=== PATIENT | male | born 1950 | race Caucasian/White ===

== ENCOUNTER 2021-08-25 02:25 | Emergency (ER) | payer MEDICARE, OTHER ==
--- NOTE | 2021-08-25 02:48 | EDM.PDOC ---
ED HPI GENERAL MEDICAL PROBLEM - General Chief Complaint: General Stated Complaint: Sudden change in LOC at home, EMS brought to ER, pt minmally responsive, last known normal was 0130 Time Seen by Provider: 08/25/21 02:25 Source of Information: Reports: EMS, Family History Limitations: Reports: Altered Mental Status - History of Present Illness INITIAL COMMENTS - FREE TEXT/NARRATIVE: LAST KNOWN NORMAL WAS 013 Onset: Sudden Onset Date: 08/25/21 Onset Time: 01:30 Duration: Constant Location: Reports: Generalized Treatments MEDICAL ECONOMICS CONSULTANT: Reports: Other (see below) (ondansetron on ambulance) - Related Data Allergies Allergy/AdvReac Type Severity Reaction Status Date / Time procaine [From Novocain] Allergy Tremors Verified 04/23/17 10:21 Home Meds: Home Meds Chlorthalidone 12.5 mg PO DAILY 04/13/16 [History] Escitalopram Oxalate 10 mg PO DAILY 04/13/16 [History] NIFEdipine [Nifedipine ER] 90 mg PO DAILY 04/13/16 [History] carvediloL [Coreg] 6.25 mg PO BID 04/13/16 [History] metFORMIN HCl [Metformin HCl] 1,000 mg PO QAM 04/13/16 [History] traZODone 50 mg PO BEDTIME 04/13/16 [History] Clopidogrel [Plavix] 75 mg PO DAILY 05/05/16 [History] Aspirin [Ecotrin EC] 81 mg PO DAILY 04/23/17 [History] Cholecalciferol (Vitamin D3) [Vitamin D3] 2,000 units PO DAILY 04/23/17 [History] Losartan Potassium 100 mg PO DAILY 04/23/17 [History] Melatonin 5 mg PO BEDTIME 04/23/17 [History] Multivitamin [Daily Multiple Vitamin] 1 each PO DAILY 04/23/17 [History] Nitroglycerin 0.4 mg PO ASDIRECTED PRN 04/23/17 [History] atorvaSTATin Calcium [Atorvastatin Calcium] 80 mg PO DAILY 04/23/17 [History] metFORMIN HCl [Metformin HCl] 500 mg PO QPM 04/23/17 [History] Past Medical History HEENT History: Reports: Cataract Cardiovascular History: Reports: Bypass, Hypertension, [place] Other Cardiovascular History: triple bypass 2006 Gastrointestinal History: Reports: GERD Other Gastrointestinal History: appetite good since this [place]; said he has been trying to watch what he eats, has lost about 15 lbs recently Other Endocrine/Metabolic History: said he started on Metformin just before his [place]; he does not check his blood sugar on a regular basis; said he had a Hg AIC recently through Dr. Almodovar's office. - Past Surgical History Dermatological Surgical History: Reports: Skin Biopsy Social & Family History - Family History Family Medical History: No Pertinent Family History ED ROS GENERAL - Review of Systems Review Of Systems: Unable To Obtain (Pt nonverbal at present.) Reason Not Obtained: unresponsive ED EXAM, GENERAL - Physical Exam Exam: See Below Exam Limited By: Altered Mental Status General Appearance: Obtunded Eye Exam: Bilateral Eye: Normal Inspection, Other (Keeps eyes closed) Ears: Normal External Exam Nose: Normal Inspection, Normal Mucosa, No Blood Throat/Mouth: Normal Inspection, Normal Lips, Normal Gums, Normal Oropharynx, No Airway Compromise Head: Atraumatic, Normocephalic Neck: Normal Inspection, Supple, Non-Tender, Full Range of Motion Respiratory/Chest: Lungs Clear, No Accessory Muscle Use Cardiovascular: Normal Peripheral Pulses, Regular Rate, Rhythm, Tachycardia GI/Abdominal: Normal Bowel Sounds, Soft, No Distention Back Exam: Normal Inspection Extremities: Normal Inspection, Normal Capillary Refill Neurological: Other (will slightly move fingers and toes on command) Skin Exam: Warm, Dry, Intact, Normal Color #1 Interpretation Rhythm: NSR QRS: RBBB Course - Vital Signs Last Recorded V/S: Last Vital Signs Temp 99.6 F 08/25/21 05:09 Pulse 82 08/25/21 05:09 Resp 27 H 08/25/21 05:09 BP 171/100 H 08/25/21 05:09 Pulse Ox 99 08/25/21 04:46 - Orders/Labs/Meds Orders: Active Orders 24 hr Category Date Time Status Head wo Cont [CT] Stat Exams 08/25/21 02:50 Taken ABO/RH TYPE [BBK] Stat Lab 08/25/21 04:26 Results FRESH FROZEN PLASMA [BBK] Stat Lab 08/25/21 04:26 Results FRESH FROZEN PLASMA [BBK] Stat Lab 08/25/21 05:23 Received Diltiazem [Cardizem] 100 mg Med 08/25/21 03:30 Active Sodium Chloride 0.9% [Normal Saline AdvBag] 100 ml IV TITRATE Hum Prothrombin Cplx(Pcc)4Fact [Kcentra 1,000 Unit Vial Med 08/25/21 04:50 Once ] 1,000 unit IV ONETIME ONE Hum Prothrombin Cplx(Pcc)4Fact [Kcentra 1,000 Unit Vial Med 08/25/21 03:47 Once ] 2,500 unit IV ONETIME ONE Labetalol [Normodyne] 100 mg Med 08/25/21 04:30 Active Sodium Chloride 0.9% [Normal Saline AdvBag] 100 ml IV TITRATE Sodium Chloride 0.9% [Normal Saline] 250 ml Med 08/25/21 05:15 Active IV ASDIRECTED Medication Orders Factor IX Complex Human (Factor Ix Complex Human 1,000 Unit Vial) 2,500 unit IV ONETIME ONE Stop: 08/25/21 03:48 Factor IX Complex Human (Factor Ix Complex Human 1,000 Unit Vial) 1,000 unit IV ONETIME ONE Stop: 08/25/21 04:51 Diltiazem HCl 100 mg/ Sodium (Chloride) 100 mls @ 5 mls/hr IV TITRATE BERYL; Protocol Last Titration: 08/25/21 04:12 Dose: 10 mg/hr, 10 mls/hr Documented by: Admin: 08/25/21 03:27 Dose: 5 mg/hr, 5 mls/hr Documented by: HUMBERTO Labetalol HCl 100 mg/ Sodium (Chloride) 120 mls @ 72 mls/hr IV TITRATE BERYL; Protocol Last Titration: 08/25/21 04:58 Dose: 2 mg/min, 144 mls/hr Documented by: Admin: 08/25/21 04:40 Dose: 1 mg/min, 72 mls/hr Documented by: HUMBERTO Sodium Chloride (Normal Saline) 250 mls @ 50 mls/hr IV ASDIRECTED BERYL Labs: Laboratory Tests 08/25/21 08/25/21 08/25/21 Range/Units 02:50 02:54 02:54 WBC 18.8 H (4.0-11.0) 10^3/uL RBC 4.50 (4.50-6.00) x10^6/uL Hgb 14.2 (14.0-18.0) g/dL Hct 44.5 (42.0-52.0) % MCV 98.9 H (83.0-97.0) fL MCH 31.6 (27.0-32.0) pg MCHC 31.9 L (32.0-36.0) g/dL RDW Coeff of Apolinar 13.7 (11.0-15.0) % Plt Count 165 (150-400) 10^3/uL Immature Gran % (Auto) 1.7 (0.0-4.9) % Neut % (Auto) 84.2 H (41-71) % Lymph % (Auto) 5.1 L (24-44) % [place] % (Auto) 8.7 (0-10) % Eos % (Auto) 0.2 (0-6) % Baso % (Auto) 0.1 (0-1) % Neut # (Auto) 15.80 H (1.80-8.00) x10^3/uL Lymph # (Auto) 0.95 (0.60-5.00) 10^3/uL [place] # (Auto) 1.64 H (0.00-1.50) 10^3/uL Eos # (Auto) 0.03 (0.00-1.50) 10^3/uL Baso # (Auto) 0.02 (0.00-0.50) 10^3/uL Immature Gran # (Auto) 0.31 (0.00-0.49) 10^3/uL PT (9.7-12.3) SEC INR (0.92-1.18) APTT (23.2-32.3) SEC Sodium 141 (136-145) mEq/L Potassium 4.1 (3.5-5.0) mEq/L Chloride 103 (98-106) mEq/L Carbon Dioxide 27 (21-32) mmol/L BUN 22 H (7-18) mg/dL Creatinine 1.4 H (0.7-1.3) mg/dL Est Cr Clr Drug Dosing 42.71 mL/min Estimated GFR (MDRD) 50 L (>=60) mL/min Glucose 313 H* D (75-99) mg/dL Calcium 8.8 (8.4-10.1) mg/dL Magnesium 1.7 L (1.8-2.4) mg/dL Total Bilirubin 0.6 (0.0-1.0) mg/dL AST 21 (15-37) U/L ALT 54 (12-78) U/L Alkaline Phosphatase 68 (46-116) U/L Troponin I High Sens 110.4 H* (<=76) pg/mL Total Protein 6.1 L (6.4-8.2) g/dL Albumin 3.1 L (3.4-5.0) g/dL SARS CoV-2 RNA Rapid ELLIOT Negative (NEGATIVE) Blood Type 08/25/21 08/25/21 Range/Units 02:54 04:26 WBC (4.0-11.0) 10^3/uL RBC (4.50-6.00) x10^6/uL Hgb (14.0-18.0) g/dL Hct (42.0-52.0) % MCV (83.0-97.0) fL MCH (27.0-32.0) pg MCHC (32.0-36.0) g/dL RDW Coeff of Apolinar (11.0-15.0) % Plt Count (150-400) 10^3/uL Immature Gran % (Auto) (0.0-4.9) % Neut % (Auto) (41-71) % Lymph % (Auto) (24-44) % [place] % (Auto) (0-10) % Eos % (Auto) (0-6) % Baso % (Auto) (0-1) % Neut # (Auto) (1.80-8.00) x10^3/uL Lymph # (Auto) (0.60-5.00) 10^3/uL [place] # (Auto) (0.00-1.50) 10^3/uL Eos # (Auto) (0.00-1.50) 10^3/uL Baso # (Auto) (0.00-0.50) 10^3/uL Immature Gran # (Auto) (0.00-0.49) 10^3/uL PT 10.9 (9.7-12.3) SEC INR 1.00 (0.92-1.18) APTT 21.7 L (23.2-32.3) SEC Sodium (136-145) mEq/L Potassium (3.5-5.0) mEq/L Chloride (98-106) mEq/L Carbon Dioxide (21-32) mmol/L BUN (7-18) mg/dL Creatinine (0.7-1.3) mg/dL Est Cr Clr Drug Dosing mL/min Estimated GFR (MDRD) (>=60) mL/min Glucose (75-99) mg/dL Calcium (8.4-10.1) mg/dL Magnesium (1.8-2.4) mg/dL Total Bilirubin (0.0-1.0) mg/dL AST (15-37) U/L ALT (12-78) U/L Alkaline Phosphatase (46-116) U/L Troponin I High Sens (<=76) pg/mL Total Protein (6.4-8.2) g/dL Albumin (3.4-5.0) g/dL SARS CoV-2 RNA Rapid ELLIOT (NEGATIVE) Blood Type O POSITIVE Meds: Medications Generic Name Dose Route Start Last Admin Trade Name Freq PRN Reason Stop Dose Admin Factor IX Complex Human 2,500 unit 08/25/21 03:47 Factor Ix Complex Human 1,000 Unit Vial IV 08/25/21 03:48 ONETIME ONE Factor IX Complex Human 1,000 unit 08/25/21 04:50 Factor Ix Complex Human 1,000 Unit Vial IV 08/25/21 04:51 ONETIME ONE Diltiazem HCl 100 mg/ Sodium 100 mls @ 5 mls/hr 08/25/21 03:30 08/25/21 04:12 Chloride IV 10 mg/hr TITRATE BERYL 10 mls/hr Titration Protocol 5 MG/HR Labetalol HCl 100 mg/ Sodium 120 mls @ 72 mls/hr 08/25/21 04:30 08/25/21 04:58 Chloride IV 2 mg/min TITRATE BERYL 144 mls/hr Titration Protocol 1 MG/MIN Sodium Chloride 250 mls @ 50 mls/hr 08/25/21 05:15 Normal Saline IV ASDIRECTED BERYL Discontinued Medications Generic Name Dose Route Start Last Admin Trade Name Freq PRN Reason Stop Dose Admin Diltiazem HCl 5 mg 08/25/21 03:19 08/25/21 03:23 Diltiazem 25 Mg/5 Ml Sdv IVPUSH 08/25/21 03:20 5 mg ONETIME ONE Administration Diltiazem HCl Confirm 08/25/21 02:59 08/25/21 03:27 Diltiazem 100 Mg Advvial Administered 08/25/21 03:00 Not Given Dose 100 mg .ROUTE .STK-MED ONE Factor IX (Pha) Confirm 08/25/21 03:40 08/25/21 04:52 Kcentra Administered 08/25/21 03:41 8.4 mls/hr Dose Administration 500 mls @ as directed .ROUTE .STK-MED ONE Labetalol HCl 10 mg 08/25/21 03:54 08/25/21 04:05 Labetalol 100 Mg/20 Ml Mdv IVPUSH 08/25/21 03:55 10 mg ONETIME ONE Administration Protocol Labetalol HCl 10 mg 08/25/21 04:24 08/25/21 04:25 Labetalol 100 Mg/20 Ml Mdv IVPUSH 08/25/21 04:25 10 mg ONETIME ONE Administration Protocol - Radiology Interpretation Free Text/Narrative:: CT head show acute hemorrhage filling all ventricles. CT Results Date: 08/25/21 - Re-Assessments/Exams Free Text/Narrative Re-Assessment/Exam: 08/25/21 05:44 CT was ordered immediately after pt arrival. Transfer process was started even before radiologist reading. [facility] neurology and neurosurgery advised to send to [facility]. [facility] called immediately. Dr. Lake accepted, but spoke with several physicians including neurosurgery. All meds and orders from that point were based on their advise and request. Pt was initially started on diltiazem drip, then bolused with labetolol and changed to labeltolol drip. Kcentra was given, FFP attempted to be given, but could not due to an issue in the lab. Pt had nasal trumpet and NRB on and sat remained in high 90s. Fixed wing flight crew intubated pt and placed on propofol drip. Family was kept updated throughout stay. Pt left for [facility] via fixed wing. Departure - Departure Time of Disposition: 05:50 Disposition: DC/Tfer to Acute Hospital 02 Condition: Serious Clinical Impression: CVA, Cerebrovascular accident - Discharge Information Referrals: PCP,None [Primary Care Provider] - Forms: ED Department Discharge, Interfacility Transfer EMTALA Sepsis Event Note (ED) - Focused Exam Vital Signs: Vital Signs Temp Temp Pulse Resp BP Pulse Ox 08/25/21 05:09 99.6 F 82 27 H 171/100 H 08/25/21 04:46 80 26 H 175/105 H 99 08/25/21 04:44 99.1 F 79 25 H 180/98 H 99 08/25/21 04:40 82 191/114 H 08/25/21 04:31 80 196/102 H 08/25/21 04:25 82 26 H 206/102 H 90 L 08/25/21 04:11 99.6 F 80 24 H 196/93 H 91 L 08/25/21 04:00 93 25 H 211/105 H 91 L 08/25/21 03:45 96 29 H 191/104 H 92 L 08/25/21 03:40 90 24 H 201/104 H 92 L 08/25/21 03:35 89 25 H 207/106 H 95 08/25/21 03:30 98.4 F 90 24 H 184/103 H 93 L 08/25/21 03:25 89 25 H 193/103 H 92 L 08/25/21 03:10 92 24 H 209/115 H 93 L 08/25/21 02:58 98.7 F 90 25 H 212/110 H 96 08/25/21 02:51 92 19 97 08/25/21 02:45 97.9 F 87 23 H 189/101 H 94 L 08/25/21 02:35 97.5 F 86 26 H 201/108 H 95 08/25/21 02:25 97.5 F 87 20 211/113 H 89 L - My Orders Last 24 Hours: My Active Orders 08/25/21 02:50 Head wo Cont [CT] Stat 08/25/21 03:30 Diltiazem [Cardizem] 100 mg Sodium Chloride 0.9% [Normal Saline AdvBag] 100 ml IV TITRATE 08/25/21 03:47 Hum Prothrombin Cplx(Pcc)4Fact [Kcentra 1,000 Unit Vial] 2,500 unit IV ONETIME ONE 08/25/21 04:26 ABO/RH TYPE [BBK] Stat FRESH FROZEN PLASMA [BBK] Stat 08/25/21 04:30 Labetalol [Normodyne] 100 mg Sodium Chloride 0.9% [Normal Saline AdvBag] 100 ml IV TITRATE 08/25/21 04:50 Hum Prothrombin Cplx(Pcc)4Fact [Kcentra 1,000 Unit Vial] 1,000 unit IV ONETIME ONE 08/25/21 05:15 Sodium Chloride 0.9% [Normal Saline] 250 ml IV ASDIRECTED 08/25/21 05:23 FRESH FROZEN PLASMA [BBK] Stat - Assessment/Plan Last 24 Hours: My Active Orders 08/25/21 02:50 Head wo Cont [CT] Stat 08/25/21 03:30 Diltiazem [Cardizem] 100 mg Sodium Chloride 0.9% [Normal Saline AdvBag] 100 ml IV TITRATE 08/25/21 03:47 Hum Prothrombin Cplx(Pcc)4Fact [Kcentra 1,000 Unit Vial] 2,500 unit IV ONETIME ONE 08/25/21 04:26 ABO/RH TYPE [BBK] Stat FRESH FROZEN PLASMA [BBK] Stat 08/25/21 04:30 Labetalol [Normodyne] 100 mg Sodium Chloride 0.9% [Normal Saline AdvBag] 100 ml IV TITRATE 08/25/21 04:50 Hum Prothrombin Cplx(Pcc)4Fact [Kcentra 1,000 Unit Vial] 1,000 unit IV ONETIME ONE 08/25/21 05:15 Sodium Chloride 0.9% [Normal Saline] 250 ml IV ASDIRECTED 08/25/21 05:23 FRESH FROZEN PLASMA [BBK] Stat
[2021-08-25] MEDS ORDERED: Diltiazem 100 MG AdvVial ONE (02:59)
[2021-08-25 03:09] LABS: PTT,PARTIAL THROMBOPLSTIN TIME 21.7 SEC (23.2-32.3)
[2021-08-25] MEDS ORDERED: Diltiazem 25 MG/5 ML SDV IVPUSH ONE (03:19)
[2021-08-25] MEDS ORDERED: Diltiazem 100 MG in Sodium Chloride 0.9% 100 ML IV SCH (03:30)
[2021-08-25] MEDS ORDERED: Factor IX Complex Human 1,000 UNIT VIAL IV ONE ×2 (03:47→04:50)
[2021-08-25] MEDS ORDERED: Labetalol 100 MG/20 ML MDV IVPUSH ONE ×2 (03:54→04:24)
[2021-08-25] MEDS ORDERED: Labetalol 100 MG in Sodium Chloride 0.9% 100 ML IV SCH (04:30)
[2021-08-25] MEDS: Factor IX Complex Human 500 UNIT ONE (04:52)
[2021-08-25 05:10] VITALS: BP 171/100; PULSE 82
[2021-08-25] MEDS ORDERED: Sodium Chloride 0.9% 250 ML IV SCH (05:15)
[2021-08-26] MEDS: Factor IX Complex Human 500 UNIT ONE (10:58)
== END 2021-08-25 05:50 ==
LOC: CC.ED 02:25
DX: I63.9 Cerebral infarction, unspecified (principal); I10 Essential (primary) hypertension; I25.2 Old myocardial infarction; K21.9 Gastro-esophageal reflux disease without esophagitis; Z79.84 Long term (current) use of oral hypoglycemic drugs; Z79.899 Other long term (current) drug therapy; Z79.82 Long term (current) use of aspirin; Z79.02 Long term (current) use of antithrombotics/antiplatelets; Z95.1 Presence of aortocoronary bypass graft; Z88.4 Allergy status to anesthetic agent
CPT/HCPCS: 36415; 70450; 80053; 83735; 84484; 85025; 85610; 85730; 87804; 93005; 96365; 96366; 96368; 96375; 96376; 99285-25; J3490; J7168; U0002